=== PATIENT | female | born 1950 | race Caucasian/White ===

== ENCOUNTER 2018-04-20 14:37 | Emergency (ER) | payer MEDICARE ==
[~2018-04-20] VITALS: Ht 180.3 cm; Wt 87.3 kg
[2018-04-20] MEDS ORDERED: PLEASE ENTER ALLERGIES MC SCH (15:00)
[2018-04-20] MEDS ORDERED: SODIUM CHLORIDE FLUSH 10ML SYR IVF ONE (15:00)
[2018-04-20] MEDS ORDERED: ACETAMINOPHEN 500 MG TABLET PO ONE (15:00)
[2018-04-20 15:38] LABS: BASOPHILS # (AUTO) 0.05 x10^3/uL (0-0.1); BASOPHILS % (AUTO) 1 % (0-1); EOSINOPHILS # (AUTO) 0.12 x10^3/uL (0-0.4); EOSINOPHILS % (AUTO) 1 % (1-7); LYMPHOCYTES # (AUTO) 1.31 x10^3/uL (1-3.4); LYMPHOCYTES % (AUTO) 15 % (22-44); MD NO; MEAN CORPUSCULAR HEMOGLOBIN 30.5 pg (27.0-34.8); MEAN CORPUSCULAR HGB CONC 33.1 g/dL (32.4-35.8); MEAN CORPUSCULAR VOLUME 92.2 fL (80-100); MEAN PLATELET VOLUME 10.1 fL (7.4-10.4); MONOCYTES # (AUTO) 0.83 x10^3/uL (0.2-0.8); MONOCYTES % (AUTO) 9 % (2-9); NEUTROPHILS # (AUTO) 6.62 x10^3/uL (1.8-6.8); NEUTROPHILS % (AUTO) 74 % (42-75); PLATELET COUNT 181 x10^3/uL (130-400); RED BLOOD COUNT 4.87 x10^6/uL (3.82-5.3); RED CELL DISTRIBUTION WIDTH 14.8 % (9.6-15.2)
[2018-04-20 15:48] LABS: ALANINE AMINOTRANSFERASE 18 U/L (12-78); ALBUMIN 3.4 g/dL (3.4-5.0); ANION GAP 9 mmol/L (5-15); CALCIUM 8.6 mg/dL (8.5-10.1); CHLORIDE 107 mmol/L (98-107)
[2018-04-20 15:51] LABS: ALKALINE PHOSPHATASE 82 U/L (45-117); BILIRUBIN,TOTAL 1.2 mg/dL (0.2-1.0); CREATININE 1.13 mg/dL (0.55-1.02); TOTAL PROTEIN 7.2 g/dL (6.4-8.2)
--- NOTE | 2018-04-20 17:15 | NUR ---
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
[2018-04-20] MEDS ORDERED: ACETAMINOPHEN 500 MG TABLET ONE (17:36)
[2018-04-20 17:58] VITALS: BP 179/70
--- NOTE | 2018-04-20 17:58 | NUR ---
pt upright on gurney awake & comfortable, responds approp to staff, NAD, comfort measures provided, call light within reach.
--- NOTE | 2018-04-20 18:00 | NUR ---
pt refused PIV at this time.
--- NOTE | 2018-04-20 18:23 | NUR ---
Patient given discharge instructions and Rx, they have confirmed that they understand the instructions. Patient ambulatory with steady gait.
== END 2018-04-20 18:30 | disposition home or self-care (01) ==
LOC: ED 17:55
DX: H66.003 Acute suppurative otitis media without spontaneous rupture of ear drum, bilateral (principal); J06.9 Acute upper respiratory infection, unspecified; Z87.891 Personal history of nicotine dependence; Z90.89 Acquired absence of other organs
CPT/HCPCS: 36415; 71046; 80053; 85025; 87040; 93005; 99284

== ENCOUNTER 2019-03-02 17:03 | Emergency (ER) | payer MEDICARE, OTHER ==
[~2019-03-02] VITALS: Ht 180.3 cm; Wt 86.0 kg
[2019-03-02] MEDS ORDERED: SODIUM CHLORIDE FLUSH 10ML SYR IVF ONE (17:30)
[2019-03-02 17:58] LABS: BASOPHILS # (AUTO) 0.04 x10^3/uL (0-0.1); BASOPHILS % (AUTO) 1 % (0-1); EOSINOPHILS % (AUTO) 5 % (1-7); LYMPHOCYTES # (AUTO) 1.67 x10^3/uL (1-3.4); LYMPHOCYTES % (AUTO) 29 % (22-44); MD NO; MEAN CORPUSCULAR HEMOGLOBIN 31.8 pg (27.0-34.8); MEAN CORPUSCULAR HGB CONC 32.8 g/dL (32.4-35.8); MEAN CORPUSCULAR VOLUME 97.1 fL (80-100); MEAN PLATELET VOLUME 9.7 fL (7.4-10.4); MONOCYTES # (AUTO) 0.31 x10^3/uL (0.2-0.8); MONOCYTES % (AUTO) 5 % (2-9); NEUTROPHILS # (AUTO) 3.39 x10^3/uL (1.8-6.8); NEUTROPHILS % (AUTO) 59 % (42-75); PLATELET COUNT 202 x10^3/uL (130-400); RED CELL DISTRIBUTION WIDTH 14.2 % (9.6-15.2)
--- NOTE | 2019-03-02 17:58 | NUR ---
TASK RN COVERING MEAL BREAK. IV PLACED, LABS DRAWN WITH START. PT PLACED ON ALL MONITORING DEVICES IN ROOM. PT IN NAD AT THIS TIME, STATES SOB AND R SIDED CP ONSET ONE WEEK AGO AND DIFFERENT FROM NORMAL SOB W/COPD. FREQUENT COUGH, NON PRODUCTIVE. XRAY AT PMD WNL. CALL LIGHT WITHIN REACH, WARM BLANKET PROVIDED. REPORT TO GAURANG DELANEY RN.
[2019-03-02] MEDS ORDERED: ATOR20TA37 PO (18:08)
[2019-03-02] MEDS ORDERED: FLUO20CA8 PO (18:08)
[2019-03-02] MEDS ORDERED: LISI5TAB7 PO (18:08)
[2019-03-02] MEDS ORDERED: TRAZ-137 PO (18:08)
[2019-03-02] MEDS ORDERED: METO25TA35 PO (18:08)
[2019-03-02] MEDS ORDERED: OMEP40CA42 PO (18:08)
[2019-03-02 18:09] LABS: ALBUMIN 3.2 g/dL (3.4-5.0); ANION GAP 5 mmol/L (5-15); CALCIUM 8.6 mg/dL (8.5-10.1); CHLORIDE 111 mmol/L (98-107); CREATININE 1.19 mg/dL (0.55-1.02)
[2019-03-02] MEDS ORDERED: TIOT18CA INH (18:10)
[2019-03-02] MEDS ORDERED: BUDE10.2 INH (18:10)
[2019-03-02 18:13] LABS: TROPONIN I 0.017 ng/mL (0.000-0.045)
--- NOTE | 2019-03-02 18:42 | NUR ---
REPORT RECEIVED FROM ANIA AMADOR. PATIENT HAS BEEN TAKEN TO CT.
[2019-03-02] MEDS ORDERED: OMNIPAQUE 350 MG/ML, 100ML BOTTLE ONE (19:00)
[2019-03-02 19:23] VITALS: BP 160/71
--- NOTE | 2019-03-02 19:24 | NUR ---
ALMA IN ROOM. AWAITING DOCTORS DETERMINATION. NO REQUESTS AT THIS TIME. CALL LIGHT WITHIN REACH.
== END 2019-03-02 20:20 | disposition home or self-care (01) ==
LOC: ED 19:45
DX: J18.9 Pneumonia, unspecified organism (principal); Z87.891 Personal history of nicotine dependence
CPT/HCPCS: 36415; 71275; 80048; 82040; 84484; 85025; 93005; 99284; Q9967

== ENCOUNTER 2019-12-01 16:22 | Inpatient (IN) | payer MEDICARE ==
[~2019-12-01] VITALS: Ht 180.3 cm; Wt 87.0 kg
[~2019-12-01 16:22] MED LIST: ATOR20TA37 PO; BUDE10.2 INH; FLUO20CA23 PO; LISI5TAB7 PO; METO25TA35 PO; OMEP40CA42 PO; TIOT18CA INH; TRAZ-175 PO
--- NOTE | 2019-12-01 16:53 | NUR ---
Pt states inspiraotory substernal chest pressure since yesterday with associated SOB. Has some labored sbreathing. Additional complaint of L flank pain. HX of COPD. No home O2. Pt appears comfortable at this time.
[2019-12-01 18:19] LABS: BASOPHILS # (AUTO) 0.03 x10^3/uL (0-0.1); BASOPHILS % (AUTO) 0 % (0-1); EOSINOPHILS # (AUTO) 0.07 x10^3/uL (0-0.4); EOSINOPHILS % (AUTO) 1 % (1-7); LYMPHOCYTES % (AUTO) 21 % (22-44); MD NO; MEAN CORPUSCULAR HGB CONC 32.5 g/dL (32.4-35.8); MEAN CORPUSCULAR VOLUME 95.2 fL (80-100); MEAN PLATELET VOLUME 9.8 fL (7.4-10.4); MONOCYTES # (AUTO) 0.56 x10^3/uL (0.2-0.8); MONOCYTES % (AUTO) 7 % (2-9); NEUTROPHILS % (AUTO) 71 % (42-75); PLATELET COUNT 151 x10^3/uL (130-400); RED BLOOD COUNT 4.46 x10^6/uL (3.82-5.3); RED CELL DISTRIBUTION WIDTH 14.4 % (9.6-15.2)
[2019-12-01 18:28] LABS: ALANINE AMINOTRANSFERASE 22 U/L (12-78); ALBUMIN 3.3 g/dL (3.4-5.0); ANION GAP 4 mmol/L (5-15); CALCIUM 8.6 mg/dL (8.5-10.1); CHLORIDE 109 mmol/L (98-107); CREATININE 1.29 mg/dL (0.55-1.02)
[2019-12-01 18:32] LABS: ALKALINE PHOSPHATASE 82 U/L (45-117); BILIRUBIN,TOTAL 0.6 mg/dL (0.2-1.0); TOTAL PROTEIN 6.5 g/dL (6.4-8.2); TROPONIN I 0.041 ng/mL (0.000-0.045)
[2019-12-01] MEDS ORDERED: SODIUM CHLORIDE 0.9%, 500ML IVBOLUS ONE (19:00)
--- NOTE | 2019-12-01 19:04 | NUR ---
Pt to CT
--- NOTE | 2019-12-01 19:21 | NUR ---
PIV started, fluids infusing
[2019-12-01] MEDS ORDERED: RIVAROXABAN 10 MG TABLET ONE (20:42)
[2019-12-01] MEDS ORDERED: TRAZODONE 100MG TABLET ONE (20:55)
[2019-12-01] MEDS: RIVAROXABAN 15 MG TABLET PO SCH (20:58)
[2019-12-01] MEDS ORDERED: BISACODYL 10 MG SUPP PR PRN (21:00)
[2019-12-01] MEDS: SODIUM CHLORIDE FLUSH 10ML SYR IVF SCH (21:00)
[2019-12-01] MEDS ORDERED: morphine SULFATE 10 MG/ML, 1ML IVPush PRN (21:00)
[2019-12-01] MEDS ORDERED: NITROGLYCERIN 0.4 MG BOTTLE (25 TABS) SL PRN (21:00)
[2019-12-01] MEDS ORDERED: hydrALAzine 20 MG/ML, 1ML IVPush PRN (21:00)
[2019-12-01] MEDS ORDERED: TRAZODONE 100MG TABLET PO SCH (21:00)
[2019-12-01] MEDS ORDERED: POLYETHYLENE GLYCOL 17 GM PACKET PO PRN (21:00)
[2019-12-01] MEDS ORDERED: ONDANSETRON ODT 4 MG PO PRN (21:00)
[2019-12-01] MEDS ORDERED: ACETAMINOPHEN 325 MG TABLET PO PRN (21:00)
--- NOTE | 2019-12-01 21:01 | NUR ---
Pt watching TV and resting, no needs at this time. Xarelto, Trazadone administered. No scanner available at bedside.
[2019-12-01 21:06] LABS: INTERNATIONAL NORMALIZED RATIO 0.95 (0.93-1.1); PROTHROMBIN TIME 9.8 Seconds (9.6-11.5)
[2019-12-01 21:45] VITALS: BP 141/85
[2019-12-01 22:01] VITALS: BP 179/76
[2019-12-01] MEDS ORDERED: TRAZODONE 50MG TABLET PO SCH (22:17)
[2019-12-01] MEDS ORDERED: ALBUTEROL-IPRATROPIUM MDI INH INH PRN (22:30)
[2019-12-01] MEDS ORDERED: OMNIPAQUE 350 MG/ML, 100ML BOTTLE ONE (23:05)
[2019-12-01 23:07] VITALS: BP 141/85
[2019-12-02 01:13] LABS: TROPONIN I 0.048 ng/mL (0.000-0.045)
[2019-12-02 01:22] VITALS: BP 178/86
[2019-12-02 04:49] LABS: BASOPHILS # (AUTO) 0.04 x10^3/uL (0-0.1); BASOPHILS % (AUTO) 0 % (0-1); EOSINOPHILS # (AUTO) 0.13 x10^3/uL (0-0.4); EOSINOPHILS % (AUTO) 2 % (1-7); LYMPHOCYTES # (AUTO) 2.15 x10^3/uL (1-3.4); LYMPHOCYTES % (AUTO) 26 % (22-44); MD NO; MEAN CORPUSCULAR HGB CONC 32.8 g/dL (32.4-35.8); MEAN CORPUSCULAR VOLUME 94.3 fL (80-100); MEAN PLATELET VOLUME 9.8 fL (7.4-10.4); MONOCYTES # (AUTO) 0.56 x10^3/uL (0.2-0.8); MONOCYTES % (AUTO) 7 % (2-9); NEUTROPHILS # (AUTO) 5.52 x10^3/uL (1.8-6.8); NEUTROPHILS % (AUTO) 66 % (42-75); PLATELET COUNT 158 x10^3/uL (130-400); RED BLOOD COUNT 4.76 x10^6/uL (3.82-5.3); RED CELL DISTRIBUTION WIDTH 14.7 % (9.6-15.2)
[2019-12-02 04:58] LABS: ANION GAP 7 mmol/L (5-15); CALCIUM 8.8 mg/dL (8.5-10.1); CHLORIDE 110 mmol/L (98-107)
[2019-12-02 05:03] LABS: CHOL/HDL RATIO 1.8; CHOLESTEROL, TOTAL 142 mg/dL (140-239); CREATININE 1.14 mg/dL (0.55-1.02); HDL CHOL % 56 % (28-40); HDL CHOLESTEROL (DIRECT) 79 mg/dL (40-60); LDL CHOLESTEROL,CALCULATED 44 mg/dL (54-169); LDL/HDL RATIO 0.6 (0.5-3.0); TRIGLYCERIDES 96 mg/dL (50-200); TROPONIN I 0.046 ng/mL (0.000-0.045); VLDL CHOLESTEROL 19 mg/dL (0-25)
[2019-12-02 07:26] LABS: MICROSCOPIC NOT IND
[2019-12-02] MEDS ORDERED: OMEPRAZOLE 20 MG CAPSULE.DR PO SCH (07:30)
[2019-12-02] MEDS ORDERED: REGADENOSON 0.4 MG/5 ML SYRINGE ONE (08:03)
[2019-12-02 08:45] VITALS: BP 155/72
[2019-12-02] MEDS ORDERED: TIOTROPIUM BROMIDE 18 MCG/INH INH SCH (09:00)
[2019-12-02] MEDS ORDERED: LISINOPRIL 5 MG TABLET PO SCH ×2 (09:00→21:00)
[2019-12-02] MEDS ORDERED: FLUOXETINE HCL 20 MG CAPSULE PO SCH (09:00)
[2019-12-02] MEDS ORDERED: FLUTICASONE/VILANTEROL 200-25MCG/INH INH SCH (09:00)
[2019-12-02] MEDS ORDERED: METOPROLOL TARTRATE 25 MG TAB PO SCH (09:00)
[2019-12-02 12:12] VITALS: BP 158/63
[2019-12-02] MEDS: RIVAROXABAN 15 MG TABLET PO SCH ×2 (12:14→17:13)
[2019-12-02] MEDS: SODIUM CHLORIDE FLUSH 10ML SYR IVF SCH (12:14)
[2019-12-02] MEDS: SENNA/DOCUSATE TABLET PO SCH ×2 (12:15→12:36)
[2019-12-02] MEDS ORDERED: METOPROLOL SUCCINATE 25 MG TAB.ER.24H PO SCH (12:45)
[2019-12-02] MEDS ORDERED: RIVA20TA PO (17:25)
[2019-12-02] MEDS ORDERED: TRAM50TA2 PO (17:25)
[2019-12-02] MEDS ORDERED: RIVA1TAB PO (17:25)
[2019-12-23] MEDS ORDERED: RIVAROXABAN 20 MG TABLET PO SCH (17:00)
== END 2019-12-02 18:24 | disposition home or self-care (01) | DRG 300 ==
LOC: ED 21:08 → EDIP 21:47 → 4WST 21:58
PROVIDERS: ADMIT Family Medicine; ATTEND Internal Medicine
DX: I82.401 Acute embolism and thrombosis of unspecified deep veins of right lower extremity (principal); J98.11 Atelectasis; F32.9 Major depressive disorder, single episode, unspecified; I10 Essential (primary) hypertension; I25.2 Old myocardial infarction; J44.9 Chronic obstructive pulmonary disease, unspecified; K21.9 Gastro-esophageal reflux disease without esophagitis; Z82.49 Family history of ischemic heart disease and other diseases of the circulatory system; Z87.891 Personal history of nicotine dependence; Z90.710 Acquired absence of both cervix and uterus; F10.21 Alcohol dependence, in remission; E78.5 Hyperlipidemia, unspecified; Z88.6 Allergy status to analgesic agent; Z88.8 Allergy status to other drugs, medicaments and biological substances
CPT/HCPCS: 36415; 71045; 71275; 78452; 80048; 80053; 80061; 81003; 83880; 84484; 85025; 85379; 85610; 85730; 93005; 93017; 93306; 93970; 99285; G0378; J2785; Q0162; Q9967; A9502; C9898; J0360; J2270; J7040